=== PATIENT | female | born 1980 | race Caucasian/White ===

== ENCOUNTER 2023-11-27 21:44 | Emergency (ER) | payer OTHER ==
[~2023-11-27] VITALS: Ht 152.4 cm; Wt 61.7 kg
[2023-11-27 22:04] VITALS: TEMP 97.1
[2023-11-27] MEDS ORDERED: LIDOCAINE 5% (PATCH) 1 EA PATCH TP ONE (23:07)
[2023-11-27] MEDS ORDERED: IBUPROFEN 400 MG TABLET ONE (23:08)
[2023-11-27] MEDS ORDERED: ACETAMINOPHEN ES 500 MG TABLET ONE (23:08)
[2023-11-27] MEDS: LIDOCAINE 5% (PATCH) 1 EA PATCH TP ONE (23:16)
[2023-11-27] MEDS: ACETAMINOPHEN ES 500 MG TABLET PO ONE (23:16)
[2023-11-27] MEDS: IBUPROFEN 400 MG TABLET PO ONE (23:16)
[2023-11-27] MEDS ORDERED: ACET-2605 PO (23:30)
[2023-11-27] MEDS ORDERED: IBUP-1955 PO (23:30)
[2023-11-27 23:53] VITALS: BP 131/68; O2SAT 99
== END 2023-11-27 23:53 | disposition home or self-care (01) ==
LOC: ER 21:55
DX: M54.2 Cervicalgia (principal); M54.50 Low back pain, unspecified; V49.9XXA Car occupant (driver) (passenger) injured in unspecified traffic accident, initial encounter; Y93.89 Activity, other specified; Y92.89 Other specified places as the place of occurrence of the external cause; Y99.8 Other external cause status